=== PATIENT | male | born 1965 | race Caucasian/White ===

== ENCOUNTER → 2017-07-16 | Outpatient (CLI) | payer OTHER ==
[~2017-07-16] MED LIST: AMLO5 PO; BUPR100 PO; Doxycycline Hy100 MG PO; LOSA50 PO; METF500 PO; METF500C PO
[2017-07-16 19:36] LABS: Creatinine, Urine Random 82.5 mg/dL (27.00-270.00)
[2017-07-16 19:43] LABS: Protein, Urine Random 471.4 mg/dL (0.0-11.9)
== END | disposition home or self-care (01) ==
LOC: OLS 15:14
PROVIDERS: Internal Medicine
DX: I10 Essential (primary) hypertension (principal); R80.8 Other proteinuria
CPT/HCPCS: 82570; 84156

== ENCOUNTER → 2017-08-20 | Outpatient (CLI) | payer OTHER ==
[2017-08-20 15:08] LABS: Hemoglobin 15.2 g/dL (13.5-17.5)
[2017-08-20 15:34] LABS: Albumin, Blood 2.8 g/dL (3.4-5.0); Anion Gap 8 mmol/L (6-16); Blood Urea Nitrogen 20 mg/dL (8-24); CO2, Blood 24 mmol/L (21-32); Calcium, Blood 8.8 mg/dL (8.5-10.1); Chloride, Blood 108 mmol/L (98-108); Creatinine, Blood 0.83 mg/dL (0.60-1.20); Glomerular Filtration Rate >60 (60-); Glucose, Blood 243 mg/dL (70-99); Phosphorus, Blood 3.1 mg/dL (2.5-4.9); Potassium, Blood 4.2 mmol/L (3.5-5.5); Sodium, Blood 140 mmol/L (136-145)
[2017-08-21 18:18] LABS: IgA 186 mg/dL (71-397); IgG 677 mg/dL (758-1612)
[2017-08-21 18:20] LABS: ANA Negative (NEG); Myeloperoxidase Antibody <0.2 AI (<1.0)
[2017-08-21 18:54] LABS: IgM 164 mg/dL (40-230)
[2017-08-21 20:22] LABS: Hepatitis C Antibody Non Reactive (NR)
[2017-08-22 11:46] LABS: Albumin 2.9 g/dL (3.5-5.0); Albumin 51.6 % (45.0-80.0); Protein, Total 5.7 g/dL (6.2-8.2)
[2017-08-22 18:48] LABS: ANCA <1:20
== END | disposition home or self-care (01) ==
LOC: OLS 14:29
PROVIDERS: Internal Medicine
DX: I10 Essential (primary) hypertension (principal); R80.8 Other proteinuria
CPT/HCPCS: 36415; 80069; 82306; 82784; 83516; 84165; 85014; 85018; 86038; 86256; 86334; 86704; 86706; 86708; 86803; 87340

== ENCOUNTER 2018-07-13 13:15 | Day surgery (SDC) | payer OTHER | END 2018-07-13 22:43 | disposition home or self-care (01) | LOC: WOUND 13:15 | DX: E11.621 Type 2 diabetes mellitus with foot ulcer (principal); L97.522 Non-pressure chronic ulcer of other part of left foot with fat layer exposed; L89.892 Pressure ulcer of other site, stage 2; I87.2 Venous insufficiency (chronic) (peripheral); I73.9 Peripheral vascular disease, unspecified; E11.40 Type 2 diabetes mellitus with diabetic neuropathy, unspecified; Z72.0 Tobacco use; Z89.511 Acquired absence of right leg below knee | CPT/HCPCS: G0463 ==

== ENCOUNTER 2018-07-20 00:49 | Day surgery (SDC) | payer OTHER | END 2018-07-20 23:42 | disposition home or self-care (01) | LOC: WOUND 00:49 | DX: E11.621 Type 2 diabetes mellitus with foot ulcer (principal); L89.892 Pressure ulcer of other site, stage 2; L97.522 Non-pressure chronic ulcer of other part of left foot with fat layer exposed; I87.2 Venous insufficiency (chronic) (peripheral); I73.9 Peripheral vascular disease, unspecified; Z89.511 Acquired absence of right leg below knee; Z72.0 Tobacco use ==

== ENCOUNTER 2018-07-27 12:30 | Day surgery (SDC) | payer OTHER ==
[2018-07-27] MEDS ORDERED: ATOR40TA PO (14:02)
[2018-07-28] MEDS ORDERED: GLIM2 PO (11:26)
[2018-07-28] MEDS ORDERED: ASPI325 PO (15:29)
[2018-07-28] MEDS ORDERED: CLOP75 PO (15:29)
== END 2018-07-27 22:51 | disposition home or self-care (01) ==
LOC: WOUND 12:30
DX: E11.621 Type 2 diabetes mellitus with foot ulcer (principal); L97.522 Non-pressure chronic ulcer of other part of left foot with fat layer exposed; L89.892 Pressure ulcer of other site, stage 2; Z89.511 Acquired absence of right leg below knee; I87.2 Venous insufficiency (chronic) (peripheral); I73.9 Peripheral vascular disease, unspecified; Z72.0 Tobacco use; E11.40 Type 2 diabetes mellitus with diabetic neuropathy, unspecified

== ENCOUNTER 2018-07-28 10:35 | Day surgery (SDC) | payer OTHER ==
[~2018-07-28] VITALS: Ht 190.5 cm; Wt 128.0 kg
[~2018-07-28 10:35] MED LIST changes: +ATOR40TA PO
[2018-07-28] MEDS ORDERED: GLIM2 PO (11:26)
--- NOTE | 2018-07-28 14:39 | NUR ---
PT ARRIVED BACK TO RECOVERY ROOM ON BED. RIGHT GROIN SITE SOFT NON-TENDER WITH NO HEMATOMA, NO BLEEDING AND INTACT DRESSING. PT'S FATHER IN ROOM. DR THOMAS IN ROOM -- PT STATES HIS BACKS ACHES, BUT "NO SHARP PAIN" PT'S HOB UP TO 15 DEGREES AND PT REPOSITIONED SLIGHTLY TO RIGHT SIDE PER DR THOMAS. CALL LIGHT IN REACH.
--- NOTE | 2018-07-28 14:52 | NUR ---
REPOSITIONING PT TO RIGHT LEANING SIDE IMPROVED BACK ACHE.
[2018-07-28] MEDS ORDERED: ASPI325 PO (15:29)
[2018-07-28] MEDS ORDERED: CLOP75 PO (15:29)
--- NOTE | 2018-07-28 16:42 | NUR ---
DISCHARGE PT REMAINED A&OX3. PT DENIED ANY PAIN OTHER THAN PAIN THAT HE STATED "A PAIN LEVEL OF 4/10 IN HIS BACK THAT IS CHRONIC"-(PAIN WAS RELIEVED WITH REPOSITIONING). PT UP TO DRESS SELF AND AMBULATE INDEPENDANTLY. IV DC'D WITH CANULA IN TACT. R GROIN SITE [id number] HEMATOMA NOTED. DC PAPERWORK GONE OVER WITH PT AND FATHER. PT AND FATHER VERBALLY STATED THE UNDERSTANDING OF THE DISCHARGE EDUCATION GIVEN AND DENIED ANY QUESTIONS AT THIS TIME. PT WHEELED OUT BY THIS NURSE WITH FAMILY WITH PERSONAL BELONGINGS.
== END 2018-07-28 14:30 | disposition home or self-care (01) ==
LOC: MHTC 10:35
DX: I73.9 Peripheral vascular disease, unspecified (principal); E11.40 Type 2 diabetes mellitus with diabetic neuropathy, unspecified; I10 Essential (primary) hypertension; E55.9 Vitamin D deficiency, unspecified; Z72.0 Tobacco use; Z88.0 Allergy status to penicillin
CPT/HCPCS: 37226; 37228; 37232; 75625; 75716; 75774; 82947; 85347; 99152; 99153; C1725; C1760; C1769; C1876; C1887; C1894; C2623; J1644; J2250; J3010; J7030; J7040; Q9967

== ENCOUNTER 2018-08-03 12:55 | Day surgery (SDC) | payer OTHER ==
[~2018-08-03 12:55] MED LIST changes: +ASPI325 PO; +CLOP75 PO; +GLIM2 PO
== END 2018-08-03 23:15 | disposition home or self-care (01) ==
LOC: WOUND 12:55
DX: E11.621 Type 2 diabetes mellitus with foot ulcer (principal); L89.892 Pressure ulcer of other site, stage 2; L97.522 Non-pressure chronic ulcer of other part of left foot with fat layer exposed; I87.2 Venous insufficiency (chronic) (peripheral); I73.9 Peripheral vascular disease, unspecified; Z89.511 Acquired absence of right leg below knee; Z72.0 Tobacco use; Z79.84 Long term (current) use of oral hypoglycemic drugs
CPT/HCPCS: 87070; 87075; 87077; 87147; 87186; 87205

== ENCOUNTER 2018-08-10 12:36 | Day surgery (SDC) | payer OTHER | END 2018-08-10 22:50 | disposition home or self-care (01) | LOC: WOUND 12:36 | DX: E11.621 Type 2 diabetes mellitus with foot ulcer (principal); L97.522 Non-pressure chronic ulcer of other part of left foot with fat layer exposed; T81.89XA Other complications of procedures, not elsewhere classified, initial encounter; L89.892 Pressure ulcer of other site, stage 2; Z89.511 Acquired absence of right leg below knee; I10 Essential (primary) hypertension; F17.210 Nicotine dependence, cigarettes, uncomplicated; B95.1 Streptococcus, group B, as the cause of diseases classified elsewhere; B95.7 Other staphylococcus as the cause of diseases classified elsewhere; I87.2 Venous insufficiency (chronic) (peripheral); I73.9 Peripheral vascular disease, unspecified ==

== ENCOUNTER 2018-08-17 12:45 | Day surgery (SDC) | payer OTHER | END 2018-08-17 22:48 | disposition home or self-care (01) | LOC: WOUND 12:45 | PROC: 0HBLXZZ Excision of Left Lower Leg Skin, External Approach (ICD-10-PCS; principal; 2018-08-17) | DX: E11.621 Type 2 diabetes mellitus with foot ulcer (principal); L97.522 Non-pressure chronic ulcer of other part of left foot with fat layer exposed; L89.892 Pressure ulcer of other site, stage 2; I87.2 Venous insufficiency (chronic) (peripheral); Z72.0 Tobacco use ==

== ENCOUNTER 2018-08-21 10:50 | Day surgery (SDC) | payer OTHER | END 2018-08-21 23:15 | disposition home or self-care (01) | LOC: WOUND 10:50 | DX: E11.621 Type 2 diabetes mellitus with foot ulcer (principal); L97.522 Non-pressure chronic ulcer of other part of left foot with fat layer exposed; L89.892 Pressure ulcer of other site, stage 2; I87.2 Venous insufficiency (chronic) (peripheral); I73.9 Peripheral vascular disease, unspecified; Z72.0 Tobacco use; E11.40 Type 2 diabetes mellitus with diabetic neuropathy, unspecified; Z89.511 Acquired absence of right leg below knee; Z79.82 Long term (current) use of aspirin; Z79.84 Long term (current) use of oral hypoglycemic drugs | CPT/HCPCS: G0463 ==

== ENCOUNTER 2018-08-24 00:29 | Day surgery (SDC) | payer OTHER | END 2018-08-24 23:04 | disposition home or self-care (01) | LOC: WOUND 00:29 | DX: E11.621 Type 2 diabetes mellitus with foot ulcer (principal); L89.892 Pressure ulcer of other site, stage 2; E11.51 Type 2 diabetes mellitus with diabetic peripheral angiopathy without gangrene; Z89.511 Acquired absence of right leg below knee; Z72.0 Tobacco use; I10 Essential (primary) hypertension; L84 Corns and callosities ==

== ENCOUNTER 2018-08-27 00:15 | Day surgery (SDC) | payer OTHER | END 2018-08-27 22:48 | disposition home or self-care (01) | LOC: WOUND 00:15 | DX: E11.621 Type 2 diabetes mellitus with foot ulcer (principal); L97.522 Non-pressure chronic ulcer of other part of left foot with fat layer exposed; L89.892 Pressure ulcer of other site, stage 2; Z89.511 Acquired absence of right leg below knee; I87.2 Venous insufficiency (chronic) (peripheral); Z72.0 Tobacco use; E11.40 Type 2 diabetes mellitus with diabetic neuropathy, unspecified; Z79.84 Long term (current) use of oral hypoglycemic drugs ==

== ENCOUNTER 2018-09-03 08:46 | Day surgery (SDC) | payer OTHER | END 2018-09-04 13:24 | disposition home or self-care (01) | LOC: WOUND 08:46 | DX: E11.621 Type 2 diabetes mellitus with foot ulcer (principal); L97.522 Non-pressure chronic ulcer of other part of left foot with fat layer exposed; L89.892 Pressure ulcer of other site, stage 2; Z89.511 Acquired absence of right leg below knee; I87.2 Venous insufficiency (chronic) (peripheral); I73.9 Peripheral vascular disease, unspecified; Z72.0 Tobacco use; E11.40 Type 2 diabetes mellitus with diabetic neuropathy, unspecified; Z79.82 Long term (current) use of aspirin; Z79.84 Long term (current) use of oral hypoglycemic drugs ==

== ENCOUNTER 2018-09-14 00:45 | Day surgery (SDC) | payer OTHER | END 2018-09-14 22:54 | disposition home or self-care (01) | LOC: WOUND 00:45 | DX: E11.621 Type 2 diabetes mellitus with foot ulcer (principal); L97.521 Non-pressure chronic ulcer of other part of left foot limited to breakdown of skin; L89.892 Pressure ulcer of other site, stage 2; Z89.511 Acquired absence of right leg below knee; I87.2 Venous insufficiency (chronic) (peripheral); I73.9 Peripheral vascular disease, unspecified; Z72.0 Tobacco use; Z79.84 Long term (current) use of oral hypoglycemic drugs ==

== ENCOUNTER 2018-09-16 00:29 | Day surgery (SDC) | payer OTHER | END 2018-09-16 23:03 | disposition home or self-care (01) | LOC: WOUND 00:29 | DX: E11.621 Type 2 diabetes mellitus with foot ulcer (principal); L97.521 Non-pressure chronic ulcer of other part of left foot limited to breakdown of skin; L89.892 Pressure ulcer of other site, stage 2; Z89.511 Acquired absence of right leg below knee; I87.2 Venous insufficiency (chronic) (peripheral); I73.9 Peripheral vascular disease, unspecified; Z72.0 Tobacco use; Z79.84 Long term (current) use of oral hypoglycemic drugs ==

== ENCOUNTER 2018-09-21 00:45 | Day surgery (SDC) | payer OTHER | END 2018-09-21 22:46 | disposition home or self-care (01) | LOC: WOUND 00:45 | DX: E11.621 Type 2 diabetes mellitus with foot ulcer (principal); L97.525 Non-pressure chronic ulcer of other part of left foot with muscle involvement without evidence of necrosis; E11.40 Type 2 diabetes mellitus with diabetic neuropathy, unspecified; T87.89 Other complications of amputation stump; L89.892 Pressure ulcer of other site, stage 2; I10 Essential (primary) hypertension; I87.2 Venous insufficiency (chronic) (peripheral); I73.9 Peripheral vascular disease, unspecified; Z72.0 Tobacco use; Z89.511 Acquired absence of right leg below knee ==

== ENCOUNTER 2018-09-23 00:32 | Day surgery (SDC) | payer OTHER | END 2018-09-23 22:38 | disposition home or self-care (01) | LOC: WOUND 00:32 | DX: E11.621 Type 2 diabetes mellitus with foot ulcer (principal); L97.515 Non-pressure chronic ulcer of other part of right foot with muscle involvement without evidence of necrosis; L89.892 Pressure ulcer of other site, stage 2; E11.51 Type 2 diabetes mellitus with diabetic peripheral angiopathy without gangrene; I87.2 Venous insufficiency (chronic) (peripheral); I10 Essential (primary) hypertension; E11.40 Type 2 diabetes mellitus with diabetic neuropathy, unspecified; Z72.0 Tobacco use ==

== ENCOUNTER 2018-09-25 00:15 | Day surgery (SDC) | payer OTHER | END 2018-09-25 12:00 | disposition home or self-care (01) | LOC: WOUND 00:15 | DX: E11.621 Type 2 diabetes mellitus with foot ulcer (principal); L97.525 Non-pressure chronic ulcer of other part of left foot with muscle involvement without evidence of necrosis; L89.892 Pressure ulcer of other site, stage 2; E11.40 Type 2 diabetes mellitus with diabetic neuropathy, unspecified; I10 Essential (primary) hypertension; I87.2 Venous insufficiency (chronic) (peripheral); I73.9 Peripheral vascular disease, unspecified; Z72.0 Tobacco use; Z89.511 Acquired absence of right leg below knee ==

== ENCOUNTER 2018-09-28 09:30 | Day surgery (SDC) | payer OTHER | END 2018-09-28 22:52 | disposition home or self-care (01) | LOC: WOUND 09:30 | DX: E11.621 Type 2 diabetes mellitus with foot ulcer (principal); L97.525 Non-pressure chronic ulcer of other part of left foot with muscle involvement without evidence of necrosis; L89.892 Pressure ulcer of other site, stage 2; E11.40 Type 2 diabetes mellitus with diabetic neuropathy, unspecified; I10 Essential (primary) hypertension; I87.2 Venous insufficiency (chronic) (peripheral); I73.9 Peripheral vascular disease, unspecified; Z89.511 Acquired absence of right leg below knee; Z72.0 Tobacco use ==

== ENCOUNTER 2018-09-30 00:08 | Day surgery (SDC) | payer OTHER | END 2018-09-30 22:42 | disposition home or self-care (01) | LOC: WOUND 00:08 | DX: E11.621 Type 2 diabetes mellitus with foot ulcer (principal); L97.525 Non-pressure chronic ulcer of other part of left foot with muscle involvement without evidence of necrosis; L89.892 Pressure ulcer of other site, stage 2; I73.9 Peripheral vascular disease, unspecified; I87.2 Venous insufficiency (chronic) (peripheral); I10 Essential (primary) hypertension; E11.40 Type 2 diabetes mellitus with diabetic neuropathy, unspecified; Z72.0 Tobacco use; Z89.511 Acquired absence of right leg below knee ==

== ENCOUNTER 2018-10-02 08:06 | Day surgery (SDC) | payer OTHER | END 2018-10-02 23:22 | disposition home or self-care (01) | LOC: WOUND 08:06 | DX: E11.621 Type 2 diabetes mellitus with foot ulcer (principal); L97.525 Non-pressure chronic ulcer of other part of left foot with muscle involvement without evidence of necrosis; L89.892 Pressure ulcer of other site, stage 2; I87.2 Venous insufficiency (chronic) (peripheral); E11.51 Type 2 diabetes mellitus with diabetic peripheral angiopathy without gangrene; I10 Essential (primary) hypertension; Z72.0 Tobacco use ==

== ENCOUNTER 2018-10-05 00:11 | Day surgery (SDC) | payer OTHER | END 2018-10-05 23:20 | disposition home or self-care (01) | LOC: WOUND 00:11 | DX: E11.621 Type 2 diabetes mellitus with foot ulcer (principal); L97.525 Non-pressure chronic ulcer of other part of left foot with muscle involvement without evidence of necrosis; L89.892 Pressure ulcer of other site, stage 2; I87.2 Venous insufficiency (chronic) (peripheral); I73.9 Peripheral vascular disease, unspecified; I10 Essential (primary) hypertension; E11.40 Type 2 diabetes mellitus with diabetic neuropathy, unspecified; F17.200 Nicotine dependence, unspecified, uncomplicated; Z89.511 Acquired absence of right leg below knee | CPT/HCPCS: G0463 ==

== ENCOUNTER 2018-10-12 00:17 | Day surgery (SDC) | payer OTHER | END 2018-10-12 22:54 | disposition home or self-care (01) | LOC: WOUND 00:17 | DX: L89.892 Pressure ulcer of other site, stage 2 (principal); E11.621 Type 2 diabetes mellitus with foot ulcer; L97.525 Non-pressure chronic ulcer of other part of left foot with muscle involvement without evidence of necrosis; E11.40 Type 2 diabetes mellitus with diabetic neuropathy, unspecified; I87.2 Venous insufficiency (chronic) (peripheral); I73.9 Peripheral vascular disease, unspecified; I10 Essential (primary) hypertension; Z89.511 Acquired absence of right leg below knee; Z72.0 Tobacco use ==

== ENCOUNTER 2018-10-19 09:50 | Day surgery (SDC) | payer OTHER | END 2018-10-19 22:50 | disposition home or self-care (01) | LOC: WOUND 09:50 | DX: E11.621 Type 2 diabetes mellitus with foot ulcer (principal); L97.522 Non-pressure chronic ulcer of other part of left foot with fat layer exposed; L89.892 Pressure ulcer of other site, stage 2; E11.40 Type 2 diabetes mellitus with diabetic neuropathy, unspecified; I87.2 Venous insufficiency (chronic) (peripheral); I73.9 Peripheral vascular disease, unspecified; Z89.511 Acquired absence of right leg below knee; Z79.899 Other long term (current) drug therapy; Z79.02 Long term (current) use of antithrombotics/antiplatelets; Z79.82 Long term (current) use of aspirin ==

== ENCOUNTER 2018-10-26 09:50 | Day surgery (SDC) | payer OTHER | END 2018-10-26 22:51 | disposition home or self-care (01) | LOC: WOUND 09:50 | DX: E11.621 Type 2 diabetes mellitus with foot ulcer (principal); L97.521 Non-pressure chronic ulcer of other part of left foot limited to breakdown of skin; L89.892 Pressure ulcer of other site, stage 2; I87.2 Venous insufficiency (chronic) (peripheral); I73.9 Peripheral vascular disease, unspecified; I10 Essential (primary) hypertension; E11.40 Type 2 diabetes mellitus with diabetic neuropathy, unspecified; Z89.511 Acquired absence of right leg below knee; Z72.0 Tobacco use ==

== ENCOUNTER 2018-11-09 09:40 | Day surgery (SDC) | payer OTHER | END 2018-11-09 22:48 | disposition home or self-care (01) | LOC: WOUND 09:40 | DX: E11.621 Type 2 diabetes mellitus with foot ulcer (principal); L97.521 Non-pressure chronic ulcer of other part of left foot limited to breakdown of skin; L89.892 Pressure ulcer of other site, stage 2; E11.51 Type 2 diabetes mellitus with diabetic peripheral angiopathy without gangrene; E11.40 Type 2 diabetes mellitus with diabetic neuropathy, unspecified; I10 Essential (primary) hypertension; I87.2 Venous insufficiency (chronic) (peripheral); Z89.511 Acquired absence of right leg below knee ==

== ENCOUNTER 2018-11-16 00:15 | Day surgery (SDC) | payer OTHER | END 2018-11-16 23:04 | disposition home or self-care (01) | LOC: WOUND 00:15 | DX: E11.621 Type 2 diabetes mellitus with foot ulcer (principal); L97.521 Non-pressure chronic ulcer of other part of left foot limited to breakdown of skin; L89.892 Pressure ulcer of other site, stage 2; E11.51 Type 2 diabetes mellitus with diabetic peripheral angiopathy without gangrene; E11.40 Type 2 diabetes mellitus with diabetic neuropathy, unspecified; I10 Essential (primary) hypertension; I87.2 Venous insufficiency (chronic) (peripheral); Z89.511 Acquired absence of right leg below knee; Z72.0 Tobacco use ==

== ENCOUNTER 2018-11-23 07:45 | Day surgery (SDC) | payer OTHER | END 2018-11-23 22:45 | disposition home or self-care (01) | LOC: WOUND 07:45 | DX: E11.621 Type 2 diabetes mellitus with foot ulcer (principal); L97.525 Non-pressure chronic ulcer of other part of left foot with muscle involvement without evidence of necrosis; L89.892 Pressure ulcer of other site, stage 2; E11.51 Type 2 diabetes mellitus with diabetic peripheral angiopathy without gangrene; E11.40 Type 2 diabetes mellitus with diabetic neuropathy, unspecified; I10 Essential (primary) hypertension; I87.2 Venous insufficiency (chronic) (peripheral); Z89.511 Acquired absence of right leg below knee; Z72.0 Tobacco use | CPT/HCPCS: G0463 ==

== ENCOUNTER 2018-12-14 09:26 | Day surgery (SDC) | payer OTHER ==
[2018-12-17] MEDS ORDERED: AMLO10 PO (11:17)
[2018-12-17] MEDS ORDERED: LOSARTAN-HCTZ1 EAC1 PO (11:17)
[2018-12-17] MEDS ORDERED: Glucophage1000 MG PO (11:17)
[2018-12-17] MEDS ORDERED: METO25ER PO (11:18)
== END 2018-12-14 22:55 | disposition home or self-care (01) ==
LOC: WOUND 09:26
DX: E11.621 Type 2 diabetes mellitus with foot ulcer (principal); L97.525 Non-pressure chronic ulcer of other part of left foot with muscle involvement without evidence of necrosis; L89.892 Pressure ulcer of other site, stage 2; E87.2 Acidosis; E11.51 Type 2 diabetes mellitus with diabetic peripheral angiopathy without gangrene; E11.40 Type 2 diabetes mellitus with diabetic neuropathy, unspecified; Z89.511 Acquired absence of right leg below knee; Z72.0 Tobacco use
CPT/HCPCS: G0463

== ENCOUNTER 2018-12-18 08:24 | Day surgery (SDC) | payer OTHER ==
[~2018-12-18] VITALS: Ht 188 cm; Wt 139.4 kg
[~2018-12-18 08:24] MED LIST changes: +AMLO10 PO; +Glucophage1000 MG PO; +LOSARTAN-HCTZ1 EAC1 PO; +METO25ER PO
[2018-12-18] MEDS ORDERED: ANTIBIOTIC (09:07)
--- NOTE | 2018-12-18 11:43 | NUR ---
12/18/18 1143 Alysa Hicks SEE STEP DOWN VITAL SIGN TIMES FOR PACU
--- NOTE | 2018-12-18 12:11 | NUR ---
12/18/18 1211 Alysa Hicks ON ARRIVAL TO SDU IN [facility] [place], PROSTHESIS APPLIED TO RIGHT LEG PRIOR TO TRANSFER INTO RECLINER. ONCE TRANSFERRED, PT STATES HE IS FEELING A "LITTLE SICK." EMESIS BAG PROVIDE TO PT. NAUSEA REOLVED WITHIN A COUPLE MINUTES. PT STATED IT WAS SHORT LIVED AFTER MOVING INTO RECLINER. FATHER, ANDREAS, AT BEDSIDE. ELEVATION IMPLEMENTED IN SDU. 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 PT DENIES PAIN AT THIS TIME.
== END 2018-12-18 12:45 | disposition home or self-care (01) ==
LOC: ORSCSDS 08:24
PROVIDERS: Orthopaedic Surgery
PROC: 0Y6Q0Z3 Detachment at Left 1st Toe, Low, Open Approach (ICD-10-PCS; principal; 2018-12-18 10:00)
DX: L97.529 Non-pressure chronic ulcer of other part of left foot with unspecified severity (principal); E11.40 Type 2 diabetes mellitus with diabetic neuropathy, unspecified; I10 Essential (primary) hypertension; I25.10 Atherosclerotic heart disease of native coronary artery without angina pectoris; E78.5 Hyperlipidemia, unspecified; J44.9 Chronic obstructive pulmonary disease, unspecified; F17.210 Nicotine dependence, cigarettes, uncomplicated; E66.01 Morbid (severe) obesity due to excess calories; Z68.41 Body mass index [BMI] 40.0-44.9, adult; Z79.899 Other long term (current) drug therapy
CPT/HCPCS: 82947; 87070; 87075; 87077; 87186; 87205; 88304; 88305; 88311; J0690; J1100; J2001; J2370; J2405; J2704; J2765; J3370; J7120

== ENCOUNTER 2018-12-21 09:35 | Day surgery (SDC) | payer OTHER ==
[~2018-12-21 09:35] MED LIST changes: +ANTIBIOTIC
== END 2018-12-21 23:19 | disposition home or self-care (01) ==
LOC: WOUND 09:35
DX: L89.892 Pressure ulcer of other site, stage 2 (principal); E11.621 Type 2 diabetes mellitus with foot ulcer; L97.529 Non-pressure chronic ulcer of other part of left foot with unspecified severity; E11.51 Type 2 diabetes mellitus with diabetic peripheral angiopathy without gangrene; E11.40 Type 2 diabetes mellitus with diabetic neuropathy, unspecified; I87.2 Venous insufficiency (chronic) (peripheral); I10 Essential (primary) hypertension; Z89.511 Acquired absence of right leg below knee; Z72.0 Tobacco use

== ENCOUNTER 2018-12-22 11:05 | Emergency (ER) | payer OTHER ==
[~2018-12-22] VITALS: Ht 188 cm; Wt 127.0 kg
== END 2018-12-22 12:04 | disposition home or self-care (01) ==
LOC: ER 11:05
DX: Z47.81 Encounter for orthopedic aftercare following surgical amputation (principal); E11.9 Type 2 diabetes mellitus without complications; I10 Essential (primary) hypertension; F17.210 Nicotine dependence, cigarettes, uncomplicated; Z89.432 Acquired absence of left foot; Z79.899 Other long term (current) drug therapy; Z88.0 Allergy status to penicillin
CPT/HCPCS: 99282

== ENCOUNTER 2018-12-28 10:00 | Day surgery (SDC) | payer OTHER | END 2018-12-28 22:49 | disposition home or self-care (01) | LOC: WOUND 10:00 | DX: L89.892 Pressure ulcer of other site, stage 2 (principal); E11.621 Type 2 diabetes mellitus with foot ulcer; L97.529 Non-pressure chronic ulcer of other part of left foot with unspecified severity; I87.2 Venous insufficiency (chronic) (peripheral); E11.51 Type 2 diabetes mellitus with diabetic peripheral angiopathy without gangrene; Z89.511 Acquired absence of right leg below knee; Z72.0 Tobacco use ==

== ENCOUNTER 2019-01-04 09:45 | Day surgery (SDC) | payer OTHER | END 2019-01-04 22:54 | disposition home or self-care (01) | LOC: WOUND 09:45 | PROC: 0HDKXZZ Extraction of Right Lower Leg Skin, External Approach (ICD-10-PCS; principal; 2019-01-04) | DX: L89.892 Pressure ulcer of other site, stage 2 (principal); I87.2 Venous insufficiency (chronic) (peripheral); I10 Essential (primary) hypertension; T87.89 Other complications of amputation stump; E11.51 Type 2 diabetes mellitus with diabetic peripheral angiopathy without gangrene; F17.200 Nicotine dependence, unspecified, uncomplicated; Z89.511 Acquired absence of right leg below knee; Z89.412 Acquired absence of left great toe ==

== ENCOUNTER 2019-01-18 09:45 | Day surgery (SDC) | payer OTHER | END 2019-01-18 22:46 | disposition home or self-care (01) | LOC: WOUND 09:45 | DX: L89.892 Pressure ulcer of other site, stage 2 (principal); E11.51 Type 2 diabetes mellitus with diabetic peripheral angiopathy without gangrene; I73.9 Peripheral vascular disease, unspecified; I87.2 Venous insufficiency (chronic) (peripheral); I10 Essential (primary) hypertension; F17.200 Nicotine dependence, unspecified, uncomplicated; Z89.511 Acquired absence of right leg below knee | CPT/HCPCS: G0463 ==

== ENCOUNTER 2019-02-01 09:53 | Day surgery (SDC) | payer OTHER | END 2019-02-01 23:04 | disposition home or self-care (01) | LOC: WOUND 09:53 | DX: L89.892 Pressure ulcer of other site, stage 2 (principal); I87.2 Venous insufficiency (chronic) (peripheral); I73.9 Peripheral vascular disease, unspecified; I10 Essential (primary) hypertension; Z72.0 Tobacco use; Z89.511 Acquired absence of right leg below knee | CPT/HCPCS: G0463 ==

== ENCOUNTER 2019-02-22 00:22 | Day surgery (SDC) | payer OTHER | END 2019-02-22 22:55 | disposition home or self-care (01) | LOC: WOUND 00:22 | DX: L89.892 Pressure ulcer of other site, stage 2 (principal); I87.2 Venous insufficiency (chronic) (peripheral); E11.51 Type 2 diabetes mellitus with diabetic peripheral angiopathy without gangrene; I10 Essential (primary) hypertension; I73.9 Peripheral vascular disease, unspecified; Z72.0 Tobacco use; Z89.511 Acquired absence of right leg below knee | CPT/HCPCS: G0463 ==

== ENCOUNTER → 2019-08-24 | Outpatient (CLI) | payer OTHER ==
[2019-08-24 17:40] LABS: Microalb/Creat Ratio UR, Rand 3467.15 mg/g (0.000-30.000)
== END | disposition home or self-care (01) ==
LOC: LAB 14:58 → LAB SHORT 14:58
PROVIDERS: Nurse Practitioner Family
DX: E11.42 Type 2 diabetes mellitus with diabetic polyneuropathy (principal)
CPT/HCPCS: 82043; 82570

== ENCOUNTER → 2020-04-24 | Outpatient (CLI) | payer OTHER ==
[2020-04-24 16:22] LABS: Protein, Urine Random 212.4 mg/dL (0.0-11.9)
== END | disposition home or self-care (01) ==
LOC: LAB 14:38 → LAB SHORT 14:38
PROVIDERS: Internal Medicine
DX: N18.2 Chronic kidney disease, stage 2 (mild) (principal)
CPT/HCPCS: 82570; 84156

== ENCOUNTER 2020-08-22 09:13 | Emergency (ER) | payer OTHER ==
[~2020-08-22] VITALS: Ht 188 cm; Wt 144.2 kg
[2020-08-22] MEDS ORDERED: CEPH500 PO (10:24)
== END 2020-08-22 10:31 | disposition home or self-care (01) ==
LOC: ER 09:13
DX: L03.115 Cellulitis of right lower limb (principal); E11.9 Type 2 diabetes mellitus without complications; I10 Essential (primary) hypertension; F17.210 Nicotine dependence, cigarettes, uncomplicated; Z88.0 Allergy status to penicillin; Z91.018 Allergy to other foods; Z79.02 Long term (current) use of antithrombotics/antiplatelets; Z79.899 Other long term (current) drug therapy
CPT/HCPCS: 93971; 99283-25

== ENCOUNTER 2020-09-01 09:33 | Emergency (ER) | payer OTHER ==
[~2020-09-01] VITALS: Ht 188 cm; Wt 144.2 kg
[~2020-09-01 09:33] MED LIST changes: +CEPH500 PO
[2020-09-01] MEDS ORDERED: Cephalexin500 MG PO (10:33)
== END 2020-09-01 10:45 | disposition home or self-care (01) ==
LOC: ER 09:33
DX: L03.115 Cellulitis of right lower limb (principal); I10 Essential (primary) hypertension; E11.9 Type 2 diabetes mellitus without complications; F17.200 Nicotine dependence, unspecified, uncomplicated; Z23 Encounter for immunization; Z88.0 Allergy status to penicillin; Z91.018 Allergy to other foods; Z79.82 Long term (current) use of aspirin; Z79.02 Long term (current) use of antithrombotics/antiplatelets; Z79.899 Other long term (current) drug therapy
CPT/HCPCS: 90471; 90714; 99283; A9270

== ENCOUNTER 2020-09-07 00:14 | Day surgery (SDC) | payer OTHER ==
[~2020-09-07 00:14] MED LIST changes: +Cephalexin500 MG PO
== END 2020-09-07 23:07 | disposition home or self-care (01) ==
LOC: WOUND 00:14
DX: L84 Corns and callosities (principal); Z09 Encounter for follow-up examination after completed treatment for conditions other than malignant neoplasm; F17.200 Nicotine dependence, unspecified, uncomplicated; I10 Essential (primary) hypertension; E11.51 Type 2 diabetes mellitus with diabetic peripheral angiopathy without gangrene; E11.65 Type 2 diabetes mellitus with hyperglycemia; E11.40 Type 2 diabetes mellitus with diabetic neuropathy, unspecified; E55.9 Vitamin D deficiency, unspecified; Z89.511 Acquired absence of right leg below knee; Z89.412 Acquired absence of left great toe; Z88.0 Allergy status to penicillin; Z91.018 Allergy to other foods; Z79.84 Long term (current) use of oral hypoglycemic drugs; Z86.31 Personal history of diabetic foot ulcer

== ENCOUNTER 2022-02-08 09:18 | Emergency (ER) | payer OTHER ==
[~2022-02-08] VITALS: Ht 190.5 cm; Wt 145.2 kg
[2022-02-08 10:21] LABS: BASOPHILS ABSOLUTE AUTO 0.04 K/mm3 (0.00-0.23); BASOPHILS PERCENT AUTO 1 % (0-2); EOSINOPHILS ABSOLUTE AUTO 0.06 K/mm3 (0.00-0.68); EOSINOPHILS PERCENT AUTO 1 % (0-6); Hematocrit 35.8 % (37.0-53.0); IMMATURE GRAN ABSOLUTE AUTO 0.07 K/mm3 (0.00-0.10); IMMATURE GRAN PERCENT AUTO 1 % (0-1); LYMPHOCYTES PERCENT AUTO 13 % (21-46); MONOCYTES PERCENT AUTO 10 % (4-13); Mean Corpuscular HGB 28.5 pg (26.0-34.0); Mean Corpuscular HGB Conc 33.5 g/dL (31.5-36.5); Mean Corpuscular Volume 85 fL (80-100); Mean Platelet Volume 11.3 fL (9.1-12.4); NEUTROPHILS ABSOLUTE AUTO 5.25 K/mm3 (1.96-9.15); NEUTROPHILS PERCENT AUTO 75 % (41-73); Platelet Count 204 K/mm3 (150-400); RDW Coefficient Variation 13.1 % (11.7-14.2); RDW Standard Deviation 40.8 fL (35.1-46.3); Red Blood Cell Count 4.21 M/mm3 (4.30-5.90); White Blood Cell Count 7.02 K/mm3 (4.00-11.30)
[2022-02-08] MEDS ORDERED: PIOGLITAZONE HC15 MG PO (10:27)
[2022-02-08 10:45] LABS: Albumin, Blood 3.1 g/dL (3.4-5.0); Albumin/Globulin Ratio 0.9 (0.8-1.8); Bilirubin, Total 0.4 mg/dL (0.1-1.0); Bun/Creatinine Ratio 18.4 (12.0-20.0); Calcium, Blood 8.5 mg/dL (8.5-10.1); Creatinine, Blood 1.47 mg/dL (0.60-1.20); Globulin, Blood 3.6 g/dL (2.2-4.0); Potassium, Blood 4.2 mmol/L (3.5-5.5); Total Protein, Blood 6.7 g/dL (6.4-8.2)
[2022-02-08] MEDS ORDERED: CEPH500 PO (11:37)
== END 2022-02-08 11:52 | disposition home or self-care (01) ==
LOC: ER 09:18
PROVIDERS: Physician Assistant
DX: L03.116 Cellulitis of left lower limb (principal); E11.65 Type 2 diabetes mellitus with hyperglycemia; I10 Essential (primary) hypertension; F17.210 Nicotine dependence, cigarettes, uncomplicated; Z79.899 Other long term (current) drug therapy; Z79.82 Long term (current) use of aspirin; Z79.84 Long term (current) use of oral hypoglycemic drugs; Z89.511 Acquired absence of right leg below knee
CPT/HCPCS: 36415; 80053; 85025; 93971; J0690

== ENCOUNTER → 2023-08-21 | Outpatient (CLI) | payer OTHER ==
[~2023-08-21] MED LIST changes: +PIOGLITAZONE HC15 MG PO
[2023-08-21 10:12] LABS: Protein, Urine Quantitative 9.6 mg/dL (0.0-11.9)
[2023-08-21 10:15] LABS: Microalbumin, Urine Quant. 42.7 mg/L (0.000-20.000)
== END | disposition home or self-care (01) ==
LOC: LAB 08:47 → LAB SHORT 08:47
PROVIDERS: Internal Medicine Nephrology
DX: N18.30 Chronic kidney disease, stage 3 unspecified (principal); D63.1 Anemia in chronic kidney disease; N25.81 Secondary hyperparathyroidism of renal origin; E55.9 Vitamin D deficiency, unspecified; E29.1 Testicular hypofunction; R76.9 Abnormal immunological finding in serum, unspecified; R94.5 Abnormal results of liver function studies; R94.6 Abnormal results of thyroid function studies
CPT/HCPCS: 81050; 82043; 82570; 84156

== ENCOUNTER → 2024-10-28 | Outpatient (CLI) | payer OTHER ==
[2024-10-28 19:32] LABS: BASOPHILS ABSOLUTE AUTO 0.07 K/mm3 (0.00-0.23); BASOPHILS PERCENT AUTO 1 % (0-2); EOSINOPHILS ABSOLUTE AUTO 0.28 K/mm3 (0.00-0.68); EOSINOPHILS PERCENT AUTO 4 % (0-6); Hematocrit 35.1 % (37.0-53.0); Hemoglobin 10.8 g/dL (13.5-17.5); IMMATURE GRAN ABSOLUTE AUTO 0.02 K/mm3 (0.00-0.10); IMMATURE GRAN PERCENT AUTO 0 % (0-1); LYMPHOCYTES ABSOLUTE AUTO 1.31 K/mm3 (0.84-5.20); LYMPHOCYTES PERCENT AUTO 19 % (21-46); MONOCYTES ABSOLUTE AUTO 0.67 K/mm3 (0.16-1.47); MONOCYTES PERCENT AUTO 10 % (4-13); Mean Corpuscular HGB 27.2 pg (26.0-34.0); Mean Corpuscular HGB Conc 30.8 g/dL (31.5-36.5); Mean Corpuscular Volume 88 fL (80-100); NEUTROPHILS ABSOLUTE AUTO 4.67 K/mm3 (1.96-9.15); NEUTROPHILS PERCENT AUTO 67 % (41-73); Platelet Count 248 K/mm3 (150-400); RDW Coefficient Variation 14.8 % (11.7-14.2); RDW Standard Deviation 47.5 fL (35.1-46.3); Red Blood Cell Count 3.97 M/mm3 (4.30-5.90); White Blood Cell Count 7.02 K/mm3 (4.00-11.30)
== END | disposition home or self-care (01) ==
LOC: LAB SHORT 16:53 → LAB 16:53
PROVIDERS: Internal Medicine Hematology & Oncology
DX: E61.1 Iron deficiency (principal)
CPT/HCPCS: 85025